=== PATIENT | male | born 1990 | race Hispanic/Latino ===

== ENCOUNTER 2022-02-17 18:27 | Emergency (ER) | payer SELFPAY ==
[2022-02-17 19:07] LABS: Urine Blood Negative (Negative); Urine Glucose Negative (Negative); Urine Protein 1+ (Negative); Urine Specific Gravity >=1.030 (1.005-1.030); Urine pH 5.5 (5.0-7.0)
[2022-02-17 19:16] LABS: Hematocrit 47.2 % (39.6-49.0); MCV 88.2 fL (80-100); RBC Red Blood Cell Count 5.35 M/uL (4.33-5.43)
[2022-02-17 19:17] LABS: Absolute Lymphocytes (CBC) 1.7 K/uL (0.7-4.9); Lymphocytes % 18.2 % (15.3-44.8); MPV 7.3 fL (7.6-11.3)
[2022-02-17 19:23] LABS: Protime INR 1.07
[2022-02-17 19:28] LABS: SARS-CoV-2 Antigen Rapid Res Negative (Negative)
[2022-02-17 19:49] LABS: ALT/SGPT 36 U/L (12-78); AST/SGOT 12 U/L (15-37); Albumin 4.3 g/dL (3.4-5.0); Alkaline Phosphatase 105 U/L (45-117); BUN Blood Urea Nitrogen 17 mg/dL (7-18); Barbiturates NEGATIVE (NEGATIVE); Benzodiazepines POSITIVE (NEGATIVE); Bicarbonate 30 mmol/L (21-32); Bilirubin Direct 0.2 mg/dL (0-0.2); Bilirubin Total 1.2 mg/dL (0.2-1.0); Cocaine POSITIVE (NEGATIVE); Glomerular Filtration Rate 90 ml/min (=/>90); Glucose Level 105 mg/dL (74-106); METHAMPHETAM POSITIVE (NEGATIVE); Methadone NEGATIVE (NEGATIVE); Opiates NEGATIVE (NEGATIVE); Phencyclidine NEGATIVE (NEGATIVE); Potassium 3.7 mmol/L (3.5-5.1); Protein, Total 8.2 g/dL (6.4-8.2); Sodium Level 139 mmol/L (136-145); THC Cannibis POSITIVE (NEGATIVE)
--- NOTE | 2022-02-17 20:29 | ER ---
Nurse's Notes [facility] Name: Arya Yang Age: 31 yrs Sex: Male : 1990 Arrival Date: 02/17/2022 Time: 18:28 Bed 16 Private MD: Diagnosis: Bipolar disorder, unspecified;Schizophrenia, unspecified;Cocaine abuse;Adverse effect of amphetamines;Abuse of other non-psychoactive substances;Adjustment disorder, unspecified-SUBSTANCE ABUSE ISSUES, HOMELESSNESS Presentation: 02/17 18:31 Chief complaint: EMS states: toned out to side of road in for AMS. Pt reporting SI ld1 ideation and hearing voices. Pt reports being homeless for one year. Coronavirus screen: At this time, the client does not indicate any symptoms associated with coronavirus-19. Ebola Screen: No symptoms or risks identified at this time. Initial Sepsis Screen: Does the patient meet any 2 criteria? No. Patient's initial sepsis screen is negative. Does the patient have a suspected source of infection? No. Patient's initial sepsis screen is negative. Risk Assessment: Do you want to hurt yourself or someone else? Patient reports desire/thoughts of hurting themselves or someone else. Provider notified. Onset of symptoms was February 17, 2022 at 18:33. 18:31 Method Of Arrival: EMS: [facility] ld1 18:31 Acuity: JAMES 2 ld1 Triage Assessment: 18:34 General: Appears in no apparent distress. comfortable, Behavior is calm, cooperative, ld1 appropriate for age. Pain: Denies pain. EENT: No signs and/or symptoms were reported regarding the EENT system. Neuro: Level of Consciousness is awake, alert, obeys commands, Oriented to person, place, time, situation. Cardiovascular: Capillary refill < 3 seconds Patient's skin is warm and dry. Rhythm is sinus tachycardia. Respiratory: Airway is patent Respiratory effort is even, unlabored. GI: Abdomen is flat, non-distended. : No signs and/or symptoms were reported regarding the genitourinary system. Derm: No deficits noted. No signs and/or symptoms reported regarding the dermatologic system. Musculoskeletal: No signs and/or symptoms reported regarding the musculoskeletal system. Historical: - Allergies: 18:34 No Known Allergies; ld1 - Home Meds: 18:34 None [Active]; ld1 - PMHx: 18:34 Bipolar disorder; Schizophrenia; Anxiety; ld1 - PSHx: 18:34 None; ld1 - Immunization history:: Adult Immunizations up to date, Client reports having NOT received the Covid vaccine. - Social history:: Smoking status: Patient reports the use of cigarette tobacco products, smokes one-half pack cigarettes per day, Patient uses street drugs, Methamphetamine (Meth) Patient/guardian denies using alcohol. Assessment: 20:48 Reassessment: Patient is alert, oriented x 3, equal unlabored respirations, skin ja4 warm/dry/pink. Patient denies pain at this time. Vital Signs: 18:31 BP 128 / 91; Pulse 101; Resp 20; Temp 98.1(TE); Pulse Ox 100% on R/A; Weight 65.77 kg; ld1 Height 5 ft. 9 in. (175.26 cm); Pain 0/10; 18:31 Body Mass Index 21.41 (65.77 kg, 175.26 cm) ld1 ED Course: 18:28 Patient arrived in ED. 18:30 Graec Newby, RN is Primary Nurse. ld1 18:31 Jose Barbour MD is Attending Physician. yuliana 18:33 Triage completed. ld1 18:34 Arm band placed on right wrist. ld1 18:53 SARS RAPID Sent. ld1 19:07 Inserted saline lock: 20 gauge in right antecubital area, using aseptic technique. Blood collected. 19:07 Acetaminophen Sent. zm 19:07 Basic Metabolic Panel Sent. zm 19:07 CBC with Diff Sent. zm 19:07 ETOH Level Sent. zm 19:07 Hepatic Function Sent. zm 19:07 PT-INR Sent. zm 19:07 Ptt, Activated Sent. zm 19:07 Salicylate Sent. zm 19:07 Urine Drug Screen Sent. zm 20:25 Carlos A Dobson MD is Referral Physician. yuliana 20:48 IV discontinued, intact, bleeding controlled, No redness/swelling at site. ja4 Administered Medications: No medications were administered Outcome: 20:28 Discharge ordered by . yuliana 20:49 Patient left the ED. ja4 Signatures: Jose Barbour MD MD cha Smirch, Shelby, RN RN Grace Newby RN RN ld1 Nataly Brewer Jeremy, RN RN ja4 Corrections: (The following items were deleted from the chart) 18:34 18:31 Pulse Ox 100% RA; 65.77 kg; Height 5 ft. 9 in.; BMI: 21.4; Pain 0/10; deandre1 deandre1
--- NOTE | 2022-02-17 20:29 | EDPHYS ---
Physician Documentation [facility] Name: Arya Yang Age: 31 yrs Sex: Male : 1990 Arrival Date: 02/17/2022 Time: 18:28 Bed 16 Private MD: ED Physician Jose Barbour HPI: 02/17 20:21 This 31 yrs old Male presents to ER via EMS with complaints of Suicidal yuliana Ideation. 20:21 The patient presents to the emergency department with anxiety, depression. Onset: The yuliana symptoms/episode began/occurred today. Past psychiatric history: Prior diagnosis: bipolar disorder, schizophrenia. Associated signs and symptoms: The patient has no apparent associated signs or symptoms. Severity of symptoms: At their worst the symptoms were mild in the emergency department the symptoms have improved markedly. The patient has experienced similar episodes in the past, several times. Historical: - Allergies: 18:34 No Known Allergies; ld1 - Home Meds: 18:34 None [Active]; ld1 - PMHx: 18:34 Bipolar disorder; Schizophrenia; Anxiety; ld1 - PSHx: 18:34 None; ld1 - Immunization history:: Adult Immunizations up to date, Client reports having NOT received the Covid vaccine. - Social history:: Smoking status: Patient reports the use of cigarette tobacco products, smokes one-half pack cigarettes per day, Patient uses street drugs, Methamphetamine (Meth) Patient/guardian denies using alcohol. ROS: 20:22 Constitutional: Negative for fever, chills, and weight loss, Eyes: Negative for injury, yuliana pain, redness, and discharge, ENT: Negative for injury, pain, and discharge, Neck: Negative for injury, pain, and swelling, Cardiovascular: Negative for chest pain, palpitations, and edema, Respiratory: Negative for shortness of breath, cough, wheezing, and pleuritic chest pain, Abdomen/GI: Negative for abdominal pain, nausea, vomiting, diarrhea, and constipation, Back: Negative for injury and pain, : Negative for injury, bleeding, discharge, and swelling, MS/Extremity: Negative for injury and deformity, Skin: Negative for injury, rash, and discoloration, Neuro: Negative for headache, weakness, numbness, tingling, and seizure, Allergy/Immunology: Negative for hives, rash, and allergies, Endocrine: Negative for neck swelling, polydipsia, polyuria, polyphagia, and marked weight changes, Hematologic/Lymphatic: Negative for swollen nodes, abnormal bleeding, and unusual bruising. 20:22 Psych: Positive for depression, DENIES SUICIDAL IDEATION, NOT HOMICIDAL , CAME IN BECAUSE HUNGRY. Exam: 20:22 Constitutional: This is a well developed, well nourished patient who is awake, alert, yuliana and in no acute distress. Head/Face: Normocephalic, atraumatic. Eyes: Pupils equal round and reactive to light, extra-ocular motions intact. Lids and lashes normal. Conjunctiva and sclera are non-icteric and not injected. Cornea within normal limits. Periorbital areas with no swelling, redness, or edema. ENT: Nares patent. No nasal discharge, no septal abnormalities noted. Tympanic membranes are normal and external auditory canals are clear. Oropharynx with no redness, swelling, or masses, exudates, or evidence of obstruction, uvula midline. Mucous membranes moist. Neck: Trachea midline, no thyromegaly or masses palpated, and no cervical lymphadenopathy. Supple, full range of motion without nuchal rigidity, or vertebral point tenderness. No Meningismus. Chest/axilla: Normal chest wall appearance and motion. Nontender with no deformity. No lesions are appreciated. Cardiovascular: Regular rate and rhythm with a normal S1 and S2. No gallops, murmurs, or rubs. Normal PMI, no JVD. No pulse deficits. Respiratory: Lungs have equal breath sounds bilaterally, clear to auscultation and percussion. No rales, rhonchi or wheezes noted. No increased work of breathing, no retractions or nasal flaring. Abdomen/GI: Soft, non-tender, with normal bowel sounds. No distension or tympany. No guarding or rebound. No evidence of tenderness throughout. Back: No spinal tenderness. No costovertebral tenderness. Full range of motion. Skin: Warm, dry with normal turgor. Normal color with no rashes, no lesions, and no evidence of cellulitis. MS/ Extremity: Pulses equal, no cyanosis. Neurovascular intact. Full, normal range of motion. Neuro: Awake and alert, GCS 15, oriented to person, place, time, and situation. Cranial nerves II-XII grossly intact. Motor strength 5/5 in all extremities. Sensory grossly intact. Cerebellar exam normal. Normal gait. Psych: Awake, alert, with orientation to person, place and time. Behavior, mood, and affect are within normal limits. 20:22 ECG was reviewed by the Attending Physician. Vital Signs: 18:31 BP 128 / 91; Pulse 101; Resp 20; Temp 98.1(TE); Pulse Ox 100% on R/A; Weight 65.77 kg; ld1 Height 5 ft. 9 in. (175.26 cm); Pain 0/10; 18:31 Body Mass Index 21.41 (65.77 kg, 175.26 cm) ld1 MDM: 18:31 Patient medically screened. yuliana 20:24 Differential diagnosis: acute psychotic break, depression, psychosis secondary to yuliana non-compliance. Data reviewed: vital signs, nurses notes, lab test result(s), EKG. Data interpreted: secured entrance monitor: rate is 101 beats/min, rhythm is regular, Pulse oximetry: on room air is 100 %. Test interpretation: by ED physician or midlevel provider: ECG. Counseling: I had a detailed discussion with the patient and/or guardian regarding: the historical points, exam findings, and any diagnostic results supporting the discharge/admit diagnosis, lab results, the need for outpatient follow up, for definitive care, a family practitioner, a psychiatrist. 02/17 18:32 Order name: Acetaminophen; Complete Time: 20:24 [facility] 02/17 18:32 Order name: Basic Metabolic Panel; Complete Time: 20:24 yuliana 02/17 18:32 Order name: CBC with Diff; Complete Time: 20:24 02/17 18:32 Order name: ETOH Level; Complete Time: 20:24 yuliana 02/17 18:32 Order name: Hepatic Function; Complete Time: 20:24 02/17 18:32 Order name: PT-INR; Complete Time: 20:24 yuliana 02/17 18:32 Order name: Ptt, Activated; Complete Time: 20:24 02/17 18:32 Order name: Salicylate; Complete Time: 20:24 yuliana 02/17 18:32 Order name: Urine Drug Screen; Complete Time: 20:24 yuliana 02/17 18:32 Order name: EKG; Complete Time: 18:33 02/17 18:32 Order name: EKG - Nurse/Tech; Complete Time: 18:53 02/17 18:32 Order name: SARS RAPID; Complete Time: 20:24 [facility] 02/17 19:08 Order name: Urine Dipstick-Ancillary; Complete Time: 20:24 [facility] 02/17 18:32 Order name: IV Saline Lock; Complete Time: 19:07 [facility] 02/17 18:32 Order name: Labs collected and sent; Complete Time: 19:07 [facility] 02/17 18:32 Order name: Suicide Precautions; Complete Time: 18:53 [facility] 02/17 18:32 Order name: Suicide Screening ([place]) [facility] 02/17 18:32 Order name: Urine Dipstick-Ancillary (obtain specimen); Complete Time: 19:08 [facility] EC: Rate is 81 beats/min. Rhythm is regular. QRS [place] is Normal. [place] interval is normal. QRS yuliana interval is normal. QT interval is normal. No Q waves. T waves are Normal. No ST changes noted. Clinical impression: Normal ECG and No evidence of ischemia. Interpreted by me. Reviewed by me. Administered Medications: No medications were administered Disposition Summary: 02/17/22 20:28 Discharge Ordered Location: Home yuliana Problem: new yuliana Symptoms: have improved yuliana Condition: Stable yuliana Diagnosis - Bipolar disorder, unspecified yuliana - Schizophrenia, unspecified yuliana - Cocaine abuse yuliana - Adverse effect of amphetamines yuliana - Abuse of other non-psychoactive substances yuliana - Adjustment disorder, unspecified - SUBSTANCE ABUSE ISSUES, HOMELESSNESS yuliana Followup: yuliana - With: Private Physician - When: 2 - 3 days - Reason: Recheck today's complaints, Continuance of care, Re-evaluation by your physician Followup: yuliana - With: Carlos A Dobson MD - When: 2 - 3 days - Reason: Recheck today's complaints, Re-evaluation by your physician Discharge Instructions: - Discharge Summary Sheet yuliana - Adjustment Disorder, Adult yuliana - Finding Treatment for Addiction yuliana - Substance Use Disorder yuliana - Schizophrenia yuliana - Supporting Someone With an Addiction yuliana - Supporting Someone With Bipolar Disorder yuliana - Managing Schizophrenia yuliana - Supporting Someone With Substance Use Disorder yuliana Forms: - Medication Reconciliation Form yuliana - Thank You Letter yuliana - Antibiotic Education yuliana - Prescription Opioid Use yuliana Signatures: Dispatcher [employer] Jose Núñez MD MD cha Dibbern, Lauren RN RN ld1
[2022-02-17 21:49] VITALS: BP 128/91; TEMP 98.1; O2SAT 100
--- NOTE | 2022-02-21 08:17 | EKG ---
Test Date: 2022-02-17 Test Time: 18:54:11 Transfusion Nurse: ALYSIA MEASUREMENT RESULTS: Intervals: Rate: 81 MD: 154 QRSD: 94 QT: 358 QTc: 415 [place]: P: 64 MD: 154 QRS: 86 T: 27 INTERPRETIVE STATEMENTS: Normal sinus rhythm Normal ECG Compared to ECG 08/19/2013 13:50:09 Sinus bradycardia no longer present Sinus arrhythmia no longer present Electronically Signed On 02-21-22 08:07:23 CDT by Philip Santillan
== END 2022-02-17 20:49 | disposition home or self-care (01) ==
LOC: ER 18:27
DX: F14.10 Cocaine abuse, uncomplicated (principal); F55.8 Abuse of other non-psychoactive substances; T43.625A Adverse effect of amphetamines, initial encounter; Z59.00 Homelessness unspecified; F20.9 Schizophrenia, unspecified; F31.9 Bipolar disorder, unspecified; F17.210 Nicotine dependence, cigarettes, uncomplicated; Z20.822 Contact with and (suspected) exposure to COVID-19
CPT/HCPCS: 36415; 80048; 80076; 80307; 80320; 80329; 81003; 85025; 85610; 85730; 87811; 93005; 99284

== ENCOUNTER 2022-02-18 08:39 | Emergency (ER) | payer SELFPAY ==
--- OUTSIDE RECORDS SUMMARY | 2022-02-18 08:42 | XMS REPORT | Continuity of Care Document ---
:1990 Author Organization [facility] t Address [address] [place] [address] Care Team Providers Name Role Phone PCP, PATIENT DOES NOT HAVE A Primary Care Physician Unavaila CATHY Alan Attending Clinician Unavailable aCthy Delvalle MD Attending Clinician VAUGHN SMITH Attending Clinician Unavailable Vaughn White Attending Clinician SUNNI SOTO Attending Clinician Unavailable Sunni Soto DO Attending Clinician Doctor Unassigned, [place] Attending Clinician Unavailable Stephen Baptiste MD Attending Clinician GAVIN LOWERY Attending Clinician Unavailable Gavin Lowery MD Attending Clinician Payers Payer Name Policy Type Policy Number Effective Date Expiration Date S ource Problems Condition Condition Condition Status Onset Resolution Last Treating Co mments Source Name Details Category Date Date Treatment Clinician Date No known No known Disease Unive rs active active ity of problems problems [facility] Allergies, Adverse Reactions, Alerts Allergy Allergy Status Severity Reaction(s) Onset Inactive Treating Comm ents Source Name Type Date Date Clinician No Known DA Active U 2020-07 [facility] Drug 07-11 Allergie 00:00: s 00 NO KNOWN Drug Active Univers ALLERGIE Class [facility] [place] [facility] Social History Social Habit Start Date Stop Date Quantity Comments Source Exposure to Not sure [facility] SARS-CoV-2 (event) Medica l Branch Sex Assigned At [birth year] [facility] 00:00:00 00:00:00 [facility] Smoking Status Start Date Stop Date Source Unknown if ever smoked [facility] Medications Ordered Filled Start Stop Current Ordering Indication Dosage Frequency Signature Comments Components Source Medication Medication Date Date Medication? Clinician (SIG) Name Name NaCl 0.9% 2021- No 1000mL at 999 Uni vers (NS) bolus 4-10 04-10 mL/hr, ity of infusion 13:45: 14:12 1,000 mL, Marquez as 1,000 mL 00 :00 IV Medical Infusion, Branch ONCE, 1 dose, On 10/10/21 at 0845, ANÍBAL NaCl 0.9% 2021- No 1000mL at 999 Uni vers (NS) bolus 4-10 04-10 mL/hr, ity of infusion 12:30: 14:09 1,000 mL, Marquez as 1,000 mL 00 :00 IV Medical Infusion, Branch ONCE, 1 dose, On 10/10/21 at 0730, ANÍBAL hydrOXYzine 2021- No 50mg 50 mg, Uni vers (ATARAX) 08 04-08 Oral, ity of tablet 50 02:37: 02:39 ONCE, [place] :[place] dose, On Medical Jonelle 10/07/21 Branch at 2145, ANÍBAL No known 2020-07 No Univers medications 2-14 ity of 12:14: [address] No known 2020-07 No Univers medications 2-14 ity of 12:14: [address] No known 2020-07 No Univers medications 2-14 ity of 12:14: [address] sulfacetami 2020-07- No [id number] 1[drp] Place 1 Univers de 10 % 2-06-23 Drop in ity of ophthalmic 00:00: 05:59 both eyes [place] drops 00 :00 4 (four) Medical times Branch daily for 7 days. No known 2020-07 No Univers medications 0-29 ity of 06:19: [address] No known 2020-07 No Univers medications 0-29 ity of 06:19: [place] [address] Medical Branch No known 2020-07 No Univers medications 0-29 ity of 06:19: [place] [address] Medical Branch No known 2020-07 No Univers medications 0-29 ity of 06:19: [place] [address] Medical Branch Vital Signs Vital Name Observation Time Observation Value Comments Source Systolic blood 2021-10-10 14:00:00 100 mm[Hg] Univer sity of pressure [facility] Diastolic blood 2021-10-10 14:00:00 69 mm[Hg] Unive rsity of pressure [facility] Heart rate 2021-10-10 14:00:00 87 /min [facility] [place] [facility] Respiratory rate 2021-10-10 14:00:00 18 /min Univ [facility] [place] [facility] Oxygen saturation in 2021-10-10 14:00:00 98 /min University of Arterial blood by [place] [employer] [facility] Pulse oximetry Branch Body temperature 2021-10-10 11:20:00 37.11 Aylin [facility] [place] [facility] Body weight 2021-10-10 11:20:00 61.236 kg [facility] [place] [facility] BMI 2021-10-10 11:20:00 20.53 kg/m2 [facility] [place] [facility] Systolic blood 2021-10-08 02:01:00 158 mm[Hg] Univer sity of pressure [place] [facility] Diastolic blood 2021-10-08 02:01:00 92 mm[Hg] Unive rsity of pressure [place] [facility] Heart rate 2021-10-08 02:01:00 127 /min [facility] [place] [facility] Body temperature 2021-10-08 02:01:00 35.83 Aylin [facility] [place] [facility] Respiratory rate 2021-10-08 02:01:00 16 /min [facility] [place] [facility] Body height 2021-10-08 02:01:00 170.2 cm [facility] [place] [facility] Body weight 2021-10-08 02:01:00 61.236 kg [facility] [place] [facility] BMI 2021-10-08 02:01:00 21.14 kg/m2 [facility] [place] [facility] Oxygen saturation in 2021-10-08 02:01:00 99 /min University of Arterial blood by [facility] Pulse oximetry Branch Systolic blood 2021-06-15 18:06:00 123 mm[Hg] Univer sity of pressure [place] [facility] Diastolic blood 2021-06-15 18:06:00 82 mm[Hg] Unive rsity of pressure [place] [facility] Heart rate 2021-06-15 18:06:00 108 /min [facility] [place] [facility] Body temperature 2021-06-15 18:06:00 37.06 Aylin [facility] [place] [facility] Respiratory rate 2021-06-15 18:06:00 22 /min [facility] [place] [facility] Body weight 2021-06-15 18:06:00 61.236 kg [facility] [place] [facility] BMI 2021-06-15 18:06:00 20.53 kg/m2 [facility] [place] [facility] Oxygen saturation in 2021-06-15 18:06:00 100 /min University of Arterial blood by [facility] Pulse oximetry Branch Systolic blood 2021-04-30 11:18:00 131 mm[Hg] Univer sity of pressure [place] [facility] Diastolic blood 2021-04-30 11:18:00 90 mm[Hg] Unive rsity of pressure [place] [facility] Heart rate 2021-04-30 11:18:00 112 /min [facility] [place] [facility] Body temperature 2021-04-30 11:18:00 37.11 Aylin [facility] [place] [facility] Respiratory rate 2021-04-30 11:18:00 18 /min Univ [facility] [place] [facility] [place] Body height 2021-04-30 11:18:00 172.7 cm [facility] [place] [facility] Body weight 2021-04-30 11:18:00 61.236 kg [facility] [place] [facility] BMI 2021-04-30 11:18:00 20.53 kg/m2 [facility] [place] [facility] Oxygen saturation in 2021-04-30 11:18:00 99 /min University of Arterial blood by [facility] Pulse oximetry Branch Procedures Procedure Date / Time Performing Clinician Source Performed URINALYSIS 2021-10-10 11:39:00 Cathy Delvalle [facility] CREATINE KINASE 2021-10-10 11:38:00 Cathy Delvalle [facility] MAGNESIUM 2021-10-10 11:38:00 Cathy Delvalle o [facility] COMP. METABOLIC PANEL 2021-10-10 11:38:00 Cathy Delvalle [facility] sity [facility] ([id number]) Medical Branch ETHANOL 2021-10-10 11:38:00 Cathy Delvalle [place] o [facility] CBC WITH DIFF 2021-10-10 11:38:00 Cathy Delvalle [facility] URINE DRUG (IMMUNOASSAY) 2021-10-10 11:38:00 [facility]athy [facility]val[facility] SCREEN W/O REFLEX CONSENT/REFUSAL FOR 2021-06-15 17:48:32 Doctor Unassigned, [place] [facility] [place] [facility] Name [facility] NON [facility] 2021-05-17 06:01:00 Doctor Unassigned, No [facility] [place] DOC[facility] Name [facility] 2021-05-11 06:01:00 Doctor Unassigned, No [facility] [place] DOC[facility] Name [facility] NOTICE OF PRIVACY 2021-04-30 11:12:53 Doctor Unassigned, No [facility] [place] PRACTICES Name [facility] Encounters Start End Encounter Admission Attending Care Care Encounter Source Date/Time Date/Time Type Type Clinicians Facility Department ID 2021-05-11 Inpatient [facility] [id number] [facility] 19:06:00 98 2021-10-10 2021-10-10 Emergency X [facility] ERT [id number] Univers 06:17:00 09:49:00 CATHY ybarra [facility] 2021-10-10 2021-10-10 Emergency [facility] [id number] Univers 06:17:00 09:49:00 Cathy BONILLA [id number] i ty [facility] 4.2.7.2.686 [facility] [id number] [facility] 084 Branch 2021-10-07 2021-10-07 Emergency X SARAH [facility] ERT [id number] Univers 21:07:00 22:58:00 VAUGHN ybarra [facility] 2021-10-07 2021-10-07 Emergency Sarah [facility] [id number] Univers 21:07:00 22:58:00 Vaughn BONILLA [id number] ity of [place] 4.2.7.2.686 [facility] [id number] [place] [address] Branch 2021-06-15 2021-06-15 Emergency X [facility] ERT [id number] Univers 12:07:00 12:24:00 SUNNI ity of [facility] 2021-06-15 2021-06-15 Emergency [facility] [id number] Univers 12:07:00 12:24:00 Sunni BONILLA [id number] ity of [place] 4.2.7.2.686 [facility] [id number] [address] 2021-06-15 2021-06-15 Orders Doctor JUSTUS [id number] Univers 00:00:00 00:00:00 Only Unassigned, RICARDO [id number] ity of [place] [facility] 4.2.7.2.686 Marquez as [id number] [place] [address] Branch 2021-05-17 2021-05-17 [facility] [id number] Univers 08:34:00 23:59:00 Encounter Stephen ROSAS'S [id number] ity of MEDICAL 4.2.7.2.686 [facility] [place] [id number] [place] [address] Branch 2021-05-17 2021-05-17 Orders Doctor JEROME [id number] Univers 00:00:00 00:00:00 Only Unassigned, RICARDO 350.1.13.10 ity of [place] [facility] 4.2.7.2.686 Marquez as [id number] [facility] 009 Branch 2021-05-11 2021-05-11 [facility] [id number] Univers 14:09:00 23:59:00 Encounter Stephen ROSAS'S [id number] ity of MEDICAL 4.2.7.2.686 [facility] [place] [id number] [place] [address] Branch 2021-05-11 2021-05-11 Orders Doctor JUSTUS [id number] Univers 00:00:00 00:00:00 Only Unassigned, RICARDO 350.1.13.10 ity of [place] [facility] 4.2.7.2.686 [facility] [id number] [facility] 009 Branch 2021-04-30 2021-04-30 Emergency X [facility] ERT [id number] Univers 06:21:00 06:49:00 WAKILI ity of [facility] 2021-04-30 2021-04-30 Emergency [facility] [id number] Univers 06:21:00 06:49:00 Gavin Gomez BONILLA 350.1.13.10 ity of [place] 4.2.7.2.686 [facility] [id number] [facility] 084 Cylinder Results Test Description Test Time Test Comments Results Result Comments Source ETHANOL 2021-10-10 12:33:25 Test Item Value Reference Range Interpretation Comme nts ALCOHOL (test code = 0762365110) <10 mg/dL RHODA (test code = RHODA) <10 [id number] Toxic>100 Depression of SECTION HAND>400 [facility] ([id number])2021-10-10 12:01:17 Test Item Value Reference Range Interpretation Comments NA (test code = 140 mmol/L 135-145 5486632679) K (test code = 4.7 mmol/L 3.5-5.0 5656398125) CL (test code = 101 mmol/L 98-108 6551315744) CO2 TOTAL (test code = 29 mmol/L 23-31 0584474692) AGAP (test code = 2-16 8580048615) BUN (test code = 24 mg/dL 7-23 H 2225762736) GLUCOSE (test code = 89 mg/dL 70-110 6686020031) CREATININE (test code = 0.91 mg/dL 0.60-1.25 4596633428) TOTAL BILI (test code = 1.1 mg/dL 0.1-1.8 8792690207) CALCIUM (test code = 9.6 mg/dL 8.6-10.6 6445451152) T PROTEIN (test code = 7.4 g/dL 6.3-8.2 7986784248) ALBUMIN (test code = 4.6 g/dL 3.5-5.0 4611729903) ALK PHOS (test code = 91 U/L 34-122 7951097412) ALTv (test code = 26 U/L 5-50 1742-6) AST(SGOT) (test code = 33 U/L 13-40 0599827736) eGFR (test code = mL/min/1.73m2 3054675329) RHODA (test code = RHODA) Association of Glomerular Filtration Rate (GFR) and Staging of Kidney Disease* + --+ --+ ------+| GFR (mL/min/1.73 m2) ?| With Kidney Damage ?| ?Without Kidney Damage+ --------+ --------+ +| ?>90 ?| ?Stage one ?| ? Normal ?+ ---+ ---+ -------+| ?60-89 ?| ?Stage two ?| ? Decreased GFR ? + --+ --+ ------+| ?30-59 ?| ?Stage three ?| ? Stage three ? + --+ --+ ------+| ?15-29 ?| ?Stage four ? | ? Stage four ?+ ---+ ---+ -------+| ?<15 (or dialysis) ? ?| ?Stage five ? | ? Stage five ?+ ---+ ---+ -------+ *Each stage assumes the associated GFR level has been in effect for at least three months. ?Stages 1 to 5, with or without kidney disease, indicate chronic kidney disease. Notes: Determination of stages one and two (with eGFR >59mL/min/1.73 m2) requires estimation of kidney damage for at least three months as defined by structural or functional abnormalities of the kidney, manifested by either:Pathological abnormalities or Markers of kidney damage (including abnormalities in the composition of the blood or urine or abnormalities in imaging tests). Lab Interpretation Abnormal (test code = 63143-9) [facility] 12:01:17 Test Item Value Reference Range Interpretation Comments MAGNESIUM (test code = 4980501441) 2.4 mg/dL 1.7-2.4 Lab Interpretation (test code = Normal 10493-6) [facility] [id number] 12:01:17 Test Item Value Reference Range Interpretation Comments CK (test code = 8744166089) 478 U/L 33-194 H Lab Interpretation (test code = Abnormal 06014-5) [facility] [id number] 11:51:00 Test Item Value Reference Range Interpretation Comments WBC (test code = See_Comment H [Automated 6690-2) message] The system which generated this result transmit ysabel reference range : 4.20 - 10.70 10*3/?L. The reference range was not used to interpret this result as normal/abnormal . RBC (test code = See_Comment [Automated 789-8) message] The system which generated this result transmit ysabel reference range : 4.26 - 5.52 10*6/?L. The reference range was not used to interpret this result as normal/abnormal . HGB (test code = 13.1 g/dL 12.2-16.4 718-7) HCT (test code = 37.9 % 38.4-49.3 L 4544-3) MCV (test code = 88.6 fL 81.7-95.6 787-2) MCH (test code = 30.6 pg 26.1-32.7 785-6) MCHC (test code = 34.6 g/dL 31.2-35.0 786-4) RDW-SD (test code = 42.1 fL 38.5-51.6 60095-6) RDW-CV (test code = 13.0 % 12.1-15.4 788-0) PLT (test code = See_Comment H [Automated 777-3) message] The system which generated this result transmit ysabel reference range : 150 - 328 10*3/ ?L. The reference range was not u sed to interpret th is result as normal/abnormal . MPV (test code = 8.9 fL 9.8-13.0 L 61119-8) NRBC/100 WBC (test See_Comment [Automat ed code = 7372263260) message] The system which generated this result transmit ysabel reference range : 0.0 - 10.0 /100 WBCs. The reference range was not used to interpret this result as normal/abnormal . NRBC x10^3 (test code <0.01 See_Comment [Auto mated = 9874737411) message] The system which generated this result transmit ysabel reference range : 10*3/?L. The reference range was not used to interpret this result as normal/abnormal . GRAN MAT (NEUT) % 82.0 % (test code = 770-8) IMM GRAN % (test code 0.50 % = 9290679682) LYMPH % (test code = 10.7 % 736-9) MONO % (test code = 5.8 % 5905-5) EOS % (test code = 0.4 % 713-8) BASO % (test code = 0.6 % 706-2) GRAN MAT x10^3(ANC) 13.94 10*3/uL 1.99-6.95 H (test code = 4308912688) IMM GRAN x10^3 (test 0.08 10*3/uL 0.00-0.06 H code = 2076172719) LYMPH x10^3 (test code 1.82 10*3/uL 1.09-3.23 = 731-0) MONO x10^3 (test code 0.99 10*3/uL 0.36-1.02 = 742-7) EOS x10^3 (test code = 0.06 10*3/uL 0.06-0.53 711-2) BASO x10^3 (test code 0.10 10*3/uL 0.01-0.09 H = 704-7) Lab Interpretation Abnormal (test code = 63831-2) [facility]
[2022-02-18 09:31] LABS: Urine Blood Negative (Negative); Urine Glucose Negative (Negative); Urine Protein 1+ (Negative); Urine Specific Gravity >=1.030 (1.005-1.030); Urine pH 5.5 (5.0-7.0)
[2022-02-18 09:56] LABS: Absolute Lymphocytes (CBC) 1.7 K/uL (0.7-4.9); Hematocrit 45.3 % (39.6-49.0); Lymphocytes % 17.4 % (15.3-44.8); MPV 7.5 fL (7.6-11.3); RBC Red Blood Cell Count 5.15 M/uL (4.33-5.43)
[2022-02-18 09:58] LABS: Barbiturates NEGATIVE (NEGATIVE); Benzodiazepines POSITIVE (NEGATIVE); Cocaine NEGATIVE (NEGATIVE); METHAMPHETAM POSITIVE (NEGATIVE); Methadone NEGATIVE (NEGATIVE); Opiates NEGATIVE (NEGATIVE); Phencyclidine NEGATIVE (NEGATIVE); THC Cannibis POSITIVE (NEGATIVE)
[2022-02-18] MEDS ORDERED: NA CHLORIDE 0.9% 1,000 ML ONE (10:05)
[2022-02-18 10:11] LABS: Albumin 3.7 g/dL (3.4-5.0); Bilirubin Total 0.7 mg/dL (0.2-1.0); Potassium 3.6 mmol/L (3.5-5.1); Protein, Total 7.2 g/dL (6.4-8.2)
--- NOTE | 2022-02-18 10:27 | ER ---
Nurse's Notes [facility] Name: Arya Yang Age: 31 yrs Sex: Male : 1990 Arrival Date: 02/18/2022 Time: 08:39 Bed 17 Private MD: Diagnosis: Suicidal ideations Presentation: 02/18 08:46 Chief complaint: Patient states: she hears evil voices that tell him "evil things", and ap3 patient states "i just want to already". "If i had a gun, it would make it so much easier to do this". "I dont' have anybody on my side, i'm ready to go" Patient states that because of these evil voices, he has no where to go, he's homeless and no longer has access to his children. Coronavirus screen: At this time, the client does not indicate any symptoms associated with coronavirus-19. Ebola Screen: No symptoms or risks identified at this time. Initial Sepsis Screen: Does the patient meet any 2 criteria? No. Patient's initial sepsis screen is negative. Does the patient have a suspected source of infection? No. Patient's initial sepsis screen is negative. Risk Assessment: Do you want to hurt yourself or someone else? Patient reports desire/thoughts of hurting themselves or someone else. Provider notified. Onset of symptoms is unknown. 08:46 Method Of Arrival: Ambulatory ap3 08:46 Acuity: JAMES 2 ap3 Triage Assessment: 08:50 General: Appears distressed, Behavior is anxious. Pain: Denies pain. Neuro: Level of ap3 Consciousness is awake, alert, Oriented to person, place, time, situation. Cardiovascular: Patient's skin is warm and dry. Respiratory: Airway is patent Respiratory effort is even, unlabored. Historical: - Allergies: 08:49 No Known Allergies; ap3 - PMHx: 08:49 Anxiety; Bipolar disorder; Schizophrenia; ap3 - Immunization history:: Client reports having NOT received the Covid vaccine. - Social history:: Smoking status: Patient reports the use of cigarette tobacco products, Patient/guardian denies using alcohol, street drugs. Screenin:52 Nutritional screening: No deficits noted. Tuberculosis screening: No symptoms or risk ap3 factors identified. 09:59 Abuse screen: Denies threats or abuse. Denies injuries from another. Fall Risk No fall mb8 in past 12 months (0 pts). Secondary diagnosis (15 points) No IV (0 pts). Ambulatory Aid- None/Bed Rest/Nurse Assist (0 pts). Gait- Normal/Bed Rest/Wheelchair (0 pts) Mental Status- Oriented to own ability (0 pts). Total Love Fall Scale indicates No Risk (0-24 pts). Assessment: 09:00 Pain: Denies pain. mb8 10:00 Reassessment: No changes from previously documented assessment. Patient and/or family mb8 updated on plan of care and expected duration. Pain level reassessed. Patient is alert, oriented x 3, equal unlabored respirations, skin warm/dry/pink. 11:07 Reassessment: Patient and/or family updated on plan of care and expected duration. Pain mb8 level reassessed. Patient is alert, oriented x 3, equal unlabored respirations, skin warm/dry/pink. 12:00 Reassessment: No changes from previously documented assessment. Patient and/or family mb8 updated on plan of care and expected duration. Pain level reassessed. Patient is alert, oriented x 3, equal unlabored respirations, skin warm/dry/pink. Patient denies pain at this time. 12:54 Reassessment: No changes from previously documented assessment. Patient and/or family mb8 updated on plan of care and expected duration. Pain level reassessed. Patient is alert, oriented x 3, equal unlabored respirations, skin warm/dry/pink. 13:49 Reassessment: Patient and/or family updated on plan of care and expected duration. Pain mb8 level reassessed. Patient is alert, oriented x 3, equal unlabored respirations, skin warm/dry/pink. Patient denies pain at this time. 15:01 Reassessment: Patient and/or family updated on plan of care and expected duration. Pain mb8 level reassessed. 15:36 General: Behavior is agitated, fussy, restless. mb8 16:00 Reassessment: Patient and/or family updated on plan of care and expected duration. Pain mb8 level reassessed. Patient is alert, oriented x 3, equal unlabored respirations, skin warm/dry/pink. Patient denies pain at this time. Patient states feeling better. General: Behavior is cooperative, anxious. 17:00 Reassessment: Patient and/or family updated on plan of care and expected duration. Pain mb8 level reassessed. Patient sleeping at this time.. 17:55 Reassessment: Patient and/or family updated on plan of care and expected duration. Pain mb8 level reassessed. 19:00 Reassessment: No changes from previously documented assessment. Patient and/or family ll3 updated on plan of care and expected duration. Pain level reassessed. Patient is alert, oriented x 3, equal unlabored respirations, skin warm/dry/pink. 23:00 Reassessment: No changes from previously documented assessment. Patient and/or family ll3 updated on plan of care and expected duration. Pain level reassessed. Patient is alert, oriented x 3, equal unlabored respirations, skin warm/dry/pink. 02/19 03:00 Reassessment: No changes from previously documented assessment. Patient and/or family ll3 updated on plan of care and expected duration. Pain level reassessed. Patient is alert, oriented x 3, equal unlabored respirations, skin warm/dry/pink. 06:35 Reassessment: No changes from previously documented assessment. Patient and/or family ll3 updated on plan of care and expected duration. Pain level reassessed. Patient is alert, oriented x 3, equal unlabored respirations, skin warm/dry/pink. 07:25 Reassessment: Patient and/or family updated on plan of care and expected duration. Pain jd3 level reassessed. Patient is alert, oriented x 3, equal unlabored respirations, skin warm/dry/pink. resting in bed with eyes closed. sitter at bedside. General: Appears in no apparent distress. comfortable, Behavior is calm, cooperative, appropriate for age. Pain: Denies pain. Neuro: [place]barra Agitation-Sedation Scale (RASS): 0 - Alert and Calm Level of Consciousness is awake, alert, obeys commands, Oriented to person, place, time, situation. 08:00 Reassessment: Patient appears in no apparent distress at this time. Patient and/or jd3 family updated on plan of care and expected duration. Pain level reassessed. Patient is alert, oriented x 3, equal unlabored respirations, skin warm/dry/pink. pt resting in bed, sitter at beside. 09:00 Reassessment: Patient appears in no apparent distress at this time. No changes from jd3 previously documented assessment. Patient and/or family updated on plan of care and expected duration. Pain level reassessed. Patient is alert, oriented x 3, equal unlabored respirations, skin warm/dry/pink. 10:00 Reassessment: Patient appears in no apparent distress at this time. No changes from jd3 previously documented assessment. Patient and/or family updated on plan of care and expected duration. Pain level reassessed. Patient is alert, oriented x 3, equal unlabored respirations, skin warm/dry/pink. 10:30 Reassessment: Patient and/or family updated on plan of care and expected duration. Pain jd3 level reassessed. Patient is alert, oriented x 3, equal unlabored respirations, skin warm/dry/pink. spoke with pt family member (mom) at [phone] at the pt's request to update her on plan of care. family requesting to speak with pt. pt speaking with family at this time on the phone. pt stating "I am homeless. I had to lie to these people here at the hospital saying I wanted to shoot myself just to get a place to sleep and something to eat." provider notified. no new orders at this time. 11:30 Reassessment: Patient appears in no apparent distress at this time. Patient and/or jd3 family updated on plan of care and expected duration. Pain level reassessed. Patient is alert, oriented x 3, equal unlabored respirations, skin warm/dry/pink. family at bedside talking with pt. family then out to nursing station discussing plan of care with nursing staff. pt's mother reported that even with him lying about being suicidal that the pt is still hearing voices and does not feel comfortable with the pt coming home today and agrees with the plan for transfer. pt's mother asking to receive a call when the pt is dispo'd. 12:30 Reassessment: Patient appears in no apparent distress at this time. Patient and/or jd3 family updated on plan of care and expected duration. Pain level reassessed. Patient is alert, oriented x 3, equal unlabored respirations, skin warm/dry/pink. resting in bed watching TV. 13:00 Reassessment: Patient appears in no apparent distress at this time. Patient and/or jd3 family updated on plan of care and expected duration. Pain level reassessed. Patient is alert, oriented x 3, equal unlabored respirations, skin warm/dry/pink. pt sitting up and eating lunch. 14:00 Reassessment: Patient appears in no apparent distress at this time. Patient and/or jd3 family updated on plan of care and expected duration. Pain level reassessed. Patient is alert, oriented x 3, equal unlabored respirations, skin warm/dry/pink. resting in bed watching TV. 15:00 Reassessment: Patient appears in no apparent distress at this time. Patient and/or jd3 family updated on plan of care and expected duration. Pain level reassessed. Patient is alert, oriented x 3, equal unlabored respirations, skin warm/dry/pink. resting in bed with eyes closed. even and unlabored respirations. sitter at bedside. 16:00 Reassessment: Patient appears in no apparent distress at this time. No changes from jd3 previously documented assessment. Patient and/or family updated on plan of care and expected duration. Pain level reassessed. Patient is alert, oriented x 3, equal unlabored respirations, skin warm/dry/pink. 17:00 Reassessment: Patient appears in no apparent distress at this time. No changes from jd3 previously documented assessment. Patient and/or family updated on plan of care and expected duration. Pain level reassessed. Patient is alert, oriented x 3, equal unlabored respirations, skin warm/dry/pink. 18:00 Reassessment: Patient appears in no apparent distress at this time. Patient and/or jd3 family updated on plan of care and expected duration. Pain level reassessed. Patient is alert, oriented x 3, equal unlabored respirations, skin warm/dry/pink. resting in bed watching TV. 18:15 Reassessment: pt pacing room asking for "the same medication they gave me yesterday jd3 that also helped me sleep." provider notified of pt pacing room and request. see AUG. 02/20 07:00 Reassessment: Pt laying in bed with eyes closed, respirations even and unlabored, no jl7 signs of distress noted at this time. Awaiting breakfast tray. 07:15 Reassessment: pt reported during mental health re-evaluation that he had only said that jd3 he wanted to hurt himself to get a place to sleep and food due to being homeless. 08:55 Reassessment: Patient appears in no apparent distress at this time. Patient and/or jl7 family updated on plan of care and expected duration. Pain level reassessed. Patient is alert, oriented x 3, equal unlabored respirations, skin warm/dry/pink. Breakfast tray delivered. Pt denies SI, denies HI. Sitter remains at bedside. Patient denies pain at this time. 09:00 Reassessment: Pt states "I just needed a place to stay. I don't want to hurt myself or jl7 anyone else.". 11:00 Reassessment: Patient appears in no apparent distress at this time. No changes from jl7 previously documented assessment. Patient denies pain at this time. 12:00 Reassessment: Pt requesting to be discharged, pt's mom on her way to get him. STEPHEN jl7 notified. 12:33 Reassessment: Pt awaiting mom's arrival for transportation. jl7 Psych: 02/18 08:50 [place] Suicide Severity Screening: In the past month, have you wished you were ap3 or wished you could go to sleep and not wake up? Patient responds "yes." "In the past month, have you actually had any thoughts of killing yourself?" Patient responds "yes." "In your lifetime, have you ever done anything, started to do anything, or prepared to do anything to end your life?" Patient responds "yes." Patient reports suicidal intent within 3 past months. patient states he has tried to "choke himself out", he's cut himself in the past, but now states "if I had a gun, it would make it so much easer but I aint got one". Subjective: Hallucinations are auditory, Having thoughts of suicide. Plan for suicide is to shoot himself with a gun, but the patient does not have access to a gun at this time. Objective: Patient is restless, Speech is normal, Affect is flat. 10:00 Interventions: Removed personal items and placed in bag. Patient placed in hospital mb8 gown. Searched person for dangerous items. Urine collected and sent for urine drug test. Safety Checks: Personal items have been removed. Door is open. Pt denies substance abuse. 02/20 07:00 Commitment: Patient will be a voluntary commitment. jl7 Vital Signs: 02/18 08:46 BP 154 / 81; Pulse 128; Resp 19; Pulse Ox 98% ; Weight 63.5 kg; Height 5 ft. 9 in. ap3 (175.26 cm); 10:29 BP 108 / 85 LA Supine (auto/reg); Pulse 74 RA; Resp 16 S; Temp 97.7(O); Pulse Ox 98% on kc6 R/A; Weight 63.5 kg (R); Height 5 ft. 9 in. (175.26 cm) (R); Pain 0/10; 12:53 BP 108 / 78 LA Sitting (auto/reg); Pulse 67; Resp 16 S; Temp 98.2; Pulse Ox 97% on R/A; mb8 Pain 0/10; 15:35 BP 116 / 84; Pulse 90; Resp 20; Pulse Ox 97% ; Pain 0/10; mb8 02/19 06:24 BP 106 / 71; Pulse 86; Resp 17; Temp 98.0(O); Pulse Ox 97% on R/A; mh5 22:34 BP 102 / 70; Pulse 86; Resp 16; Temp 98.1(O); Pulse Ox 98% on R/A; mh5 02/20 08:55 BP 108 / 73; Pulse 71; Resp 18; Pulse Ox 97% on R/A; tm3 08:55 Temp 98.1; jl7 02/18 10:29 Body Mass Index 20.67 (63.50 kg, 175.26 cm) kc6 ED Course: 02/18 08:39 Patient arrived in ED. am2 08:49 Triage completed. ap3 08:52 Arm band placed on right wrist. ap3 09:12 Jose Barbour MD is Attending Physician. yuliana 09:23 Stephen Junior, BENJY is Primary Nurse. mb8 09:32 UDS Sent. kc6 09:45 Comprehensive Metabolic Panel Sent. kc6 09:45 CBC with Diff Sent. kc6 09:45 Inserted saline lock: 20 gauge in right antecubital area, using aseptic technique. kc6 Blood collected. 09:59 No provider procedures requiring assistance completed. mb8 10:00 Patient has correct armband on for positive identification. Placed in gown. Bed in low mb8 position. Side rails up X2. 10:08 called the [facility] Crisis Line/ She will page out a screener. eb 10:20 faxed patient chart to [facility] in attempt to initiate a transfer. eb 10:28 Safety checks: Items removed: yes. Door open/sign placed on door: yes. Family/friend kc6 present: no. Sitter present: Yes. Warm blanket given. Sitter at bedside. 11:06 Safety Checks: Sitter present at this time. mb8 12:08 PRTevaluating patient at this time. mb8 12:48 IV discontinued, intact, bleeding controlled, No redness/swelling at site. Pressure mb8 dressing applied, Patient pulled out IV because "it was bothering me". Removal of. 13:49 Safety Checks: Sitter present at this time. mb8 15:01 Appears to be sleeping. mb8 15:02 Safety Checks: Sitter present at this time. mb8 16:23 Safety Checks: Sitter present at this time. mb8 17:00 Appears to be sleeping. Safety Checks: Sitter present at this time. mb8 17:56 Resting quietly. Safety Checks: Sitter present at this time. mb8 19:00 Safety Checks: Personal items have been removed. The door is open or patient has been ll3 placed in a hallway bed/chair. Sitter present at this time. 23:00 No apparent distress. Resting quietly. ll3 08/ 01:52 No apparent distress. Appears to be sleeping. ll3 06:47 SARS RAPID Sent. mh5 06:47 RAPID COVID. mh5 07:46 Primary Nurse role handed off by Stephen Junior RN eb 09:06 Akash Salas RN is Primary Nurse. jd3 11:25 faxed patient COVID results to [facility] as requested by [facility] / they could not find them in eb the chart sent yesterday. 19:00 Appears to be sleeping. ll3 21:00 Resting quietly. Appears to be sleeping. ll3 23:00 Appears to be sleeping. ll3 08 02:41 Resting quietly. Appears to be sleeping. ll3 07:13 Primary Nurse role handed off by Akash Salas RN jl7 07:13 Barbra Reyes RN is Primary Nurse. jl7 08:55 transfer approval from receiving facility. jl7 12:24 Attending Physician role handed off by Jose Barbour MD sd2 12:24 Joana Blackmon MD is Attending Physician. sd2 Administered Medications: 02/18 09:58 Drug: NS 0.9% 1000 ml Route: IV; Rate: 1 bolus; Site: right antecubital; mb8 10:28 Follow up: Response: No adverse reaction; IV Status: Completed infusion mb8 11:00 Follow up: Response: No adverse reaction; IV Status: Completed infusion mb8 16:23 Drug: Valium (diazepam) 10 mg Route: PO; mb8 16:25 Follow up: Response: No adverse reaction mb8 02/19 18:22 Drug: Valium (diazepam) 10 mg Route: PO; jd3 19:02 Follow up: Response: No adverse reaction jd3 Medication: 02/18 10:00 VIS not applicable for this client. mb8 Outcome: 10:26 ER care complete, transfer ordered by . yuliana 02/20 12:25 Discharge ordered by . md2 12:32 Discharged to home ambulatory, with family. jl7 12:32 Condition: stable 12:32 Discharge instructions given to patient, Instructed on discharge instructions, follow up and referral plans. Demonstrated understanding of instructions, follow-up care. 12:39 Patient left the ED. jl7 Signatures: Reji Lutz tm3 Jose Barbour MD MD cha Martinez, [facility] Barbra Reyes RN RN jl7 Nelida Choe Jonathon RN RN jd3 Nelida Mendieta RN RN adelina3 Prerna Montez Lynsea, RN RN 3 Joana Blackmon MD MD sdKarmen Iqbal kc6 Stephen Junior RN RN mb8
--- NOTE | 2022-02-18 10:27 | EDPHYS ---
Physician Documentation [facility] Name: Arya Yang Age: 31 yrs Sex: Male : 1990 Arrival Date: 02/18/2022 Time: 08:39 Bed 17 Private MD: ED Physician Joana Blackmon HPI: 02/18 10:14 This 31 yrs old Male presents to ER via Ambulatory with complaints of Suicidal yuliana Ideation, hearing voices. 10:14 The patient presents to the emergency department with anxiety, depression. Onset: The yuliana symptoms/episode began/occurred 2 day(s) ago. Past psychiatric history: Prior diagnosis: schizophrenia, Psychiatric medications include: none. Associated signs and symptoms: Pertinent positives; depression, substance abuse. Severity of symptoms: At their worst the symptoms were mild in the emergency department the symptoms are unchanged. The patient has not experienced similar symptoms in the past. Historical: - Allergies: 08:49 No Known Allergies; ap3 - PMHx: 08:49 Anxiety; Bipolar disorder; Schizophrenia; ap3 - Immunization history:: Client reports having NOT received the Covid vaccine. - Social history:: Smoking status: Patient reports the use of cigarette tobacco products, Patient/guardian denies using alcohol, street drugs. ROS: 10:17 Constitutional: Negative for fever, chills, and weight loss, Eyes: Negative for injury, yuliana pain, redness, and discharge, ENT: Negative for injury, pain, and discharge, Neck: Negative for injury, pain, and swelling, Cardiovascular: Negative for chest pain, palpitations, and edema, Respiratory: Negative for shortness of breath, cough, wheezing, and pleuritic chest pain, Abdomen/GI: Negative for abdominal pain, nausea, vomiting, diarrhea, and constipation, Back: Negative for injury and pain, : Negative for injury, bleeding, discharge, and swelling, MS/Extremity: Negative for injury and deformity, Skin: Negative for injury, rash, and discoloration, Neuro: Negative for headache, weakness, numbness, tingling, and seizure, Allergy/Immunology: Negative for hives, rash, and allergies, Endocrine: Negative for neck swelling, polydipsia, polyuria, polyphagia, and marked weight changes. 10:17 Psych: Positive for anxiety, auditory hallucinations, suicidal ideation. Exam: 10:17 Constitutional: This is a well developed, well nourished patient who is awake, alert, yuliana and in no acute distress. Head/Face: Normocephalic, atraumatic. Eyes: Pupils equal round and reactive to light, extra-ocular motions intact. Lids and lashes normal. Conjunctiva and sclera are non-icteric and not injected. Cornea within normal limits. Periorbital areas with no swelling, redness, or edema. ENT: Nares patent. No nasal discharge, no septal abnormalities noted. Tympanic membranes are normal and external auditory canals are clear. Oropharynx with no redness, swelling, or masses, exudates, or evidence of obstruction, uvula midline. Mucous membranes moist. Neck: Trachea midline, no thyromegaly or masses palpated, and no cervical lymphadenopathy. Supple, full range of motion without nuchal rigidity, or vertebral point tenderness. No Meningismus. Chest/axilla: Normal chest wall appearance and motion. Nontender with no deformity. No lesions are appreciated. Cardiovascular: Regular rate and rhythm with a normal S1 and S2. No gallops, murmurs, or rubs. Normal PMI, no JVD. No pulse deficits. Respiratory: Lungs have equal breath sounds bilaterally, clear to auscultation and percussion. No rales, rhonchi or wheezes noted. No increased work of breathing, no retractions or nasal flaring. Abdomen/GI: Soft, non-tender, with normal bowel sounds. No distension or tympany. No guarding or rebound. No evidence of tenderness throughout. Back: No spinal tenderness. No costovertebral tenderness. Full range of motion. Male : Normal genitalia with no discharge or lesions. Skin: Warm, dry with normal turgor. Normal color with no rashes, no lesions, and no evidence of cellulitis. MS/ Extremity: Pulses equal, no cyanosis. Neurovascular intact. Full, normal range of motion. Neuro: Awake and alert, GCS 15, oriented to person, place, time, and situation. Cranial nerves II-XII grossly intact. Motor strength 5/5 in all extremities. Sensory grossly intact. Cerebellar exam normal. Normal gait. 10:17 Psych: Affect is calm, Oriented to Patient has no thoughts/intents to harm self or others. Judgement / Insight is normal. Memory is normal. Delusions/hallucinations are present and described as HEARING VOICES. Vital Signs: 08:46 BP 154 / 81; Pulse 128; Resp 19; Pulse Ox 98% ; Weight 63.5 kg; Height 5 ft. 9 in. ap3 (175.26 cm); 10:29 BP 108 / 85 LA Supine (auto/reg); Pulse 74 RA; Resp 16 S; Temp 97.7(O); Pulse Ox 98% on kc6 R/A; Weight 63.5 kg (R); Height 5 ft. 9 in. (175.26 cm) (R); Pain 0/10; 12:53 BP 108 / 78 LA Sitting (auto/reg); Pulse 67; Resp 16 S; Temp 98.2; Pulse Ox 97% on R/A; mb8 Pain 0/10; 15:35 BP 116 / 84; Pulse 90; Resp 20; Pulse Ox 97% ; Pain 0/10; mb8 08 06:24 BP 106 / 71; Pulse 86; Resp 17; Temp 98.0(O); Pulse Ox 97% on R/A; mh5 22:34 BP 102 / 70; Pulse 86; Resp 16; Temp 98.1(O); Pulse Ox 98% on R/A; mh5 02/20 08:55 BP 108 / 73; Pulse 71; Resp 18; Pulse Ox 97% on R/A; tm3 08:55 Temp 98.1; jl7 02/18 10:29 Body Mass Index 20.67 (63.50 kg, 175.26 cm) kc6 MDM: 02/18 09:12 Patient medically screened. yuliana 10:23 Differential diagnosis: drug withdrawal. acute psychotic break, depression, psychosis yuliana secondary to non-compliance. Data reviewed: vital signs, nurses notes, lab test result(s), EKG. Data interpreted: or first assist registered nurse: rate is 128 beats/min, rhythm is regular, Pulse oximetry: on room air is 98 %. Test interpretation: by ED physician or midlevel provider: ECG. Counseling: I had a detailed discussion with the patient and/or guardian regarding: the historical points, exam findings, and any diagnostic results supporting the discharge/admit diagnosis, lab results, radiology results. 02/19 03:06 ED course: Patient has been resting comfortably and not required any further kdr intervention during her shift. 07:23 Transition of care: Care assumed from Burton Pedroza MD. ED course: Bed available on monday for patient. Medically cleared. Pending placement.. 02/20 01:57 ED course: Patient continues to rest comfortably in the ED and does not require any kdr further intervention at this time.. 11:55 ED course: I was advised by RN that patient is now wanting to leave. He is denying any sd2 further suicidal ideation and does not appear to be a danger to himself or others. He was informed that he was pending placement and should have a bed available tomorrow but is choosing to leave. He understands that he may change his mind and return at any time for further evaluation. He verbalizes understanding of discharge plan and strict return precautions.. 02/18 09:13 Order name: CBC with Diff; Complete Time: 10:05 [facility] 02/18 09:13 Order name: Comprehensive Metabolic Panel; Complete Time: 10:13 [facility] 02/18 09:13 Order name: UDS; Complete Time: 10:05 [facility] 02/18 09:31 Order name: Urine Dipstick-Ancillary; Complete Time: 10:05 [facility] 02/19 06:34 Order name: SARS RAPID; Complete Time: 17:35 ll3 02/18 17:53 Order name: Diet Finger Food: dinner tray; Complete Time: 17:54 eb 02/19 05:25 Order name: Diet Finger Food; Complete Time: 05:26 mh5 02/19 09:40 Order name: Diet Finger Food; Complete Time: 09:41 jd3 02/19 16:20 Order name: Diet Finger Food; Complete Time: 16:21 em6 02/20 05:12 Order name: Diet Finger Food; Complete Time: 05:13 5 02/20 10:51 Order name: Diet Finger Food; Complete Time: 10:51 tm3 02/18 09:13 Order name: Urine Dipstick-Ancillary (obtain specimen); Complete Time: 09:31 [facility] Administered Medications: 02/18 09:58 Drug: NS 0.9% 1000 ml Route: IV; Rate: 1 bolus; Site: right antecubital; mb8 10:28 Follow up: Response: No adverse reaction; IV Status: Completed infusion mb8 11:00 Follow up: Response: No adverse reaction; IV Status: Completed infusion mb8 16:23 Drug: Valium (diazepam) 10 mg Route: PO; mb8 16:25 Follow up: Response: No adverse reaction mb8 02/19 18:22 Drug: Valium (diazepam) 10 mg Route: PO; jd3 19:02 Follow up: Response: No adverse reaction jd3 Disposition Summary: 02/20/22 12:25 Discharge Ordered Location: Home sd2 Problem: an acute exacerbation(02/20/22 12:25) sd2 Symptoms: are resolved(02/20/22 12:25) sd2 Condition: Stable(02/20/22 12:25) sd2 Diagnosis - Suicidal ideations(02/20/22 12:25) sd2 Followup: sd2 - With: Private Physician - When: 2 - 3 days - Reason: Recheck today's complaints, Continuance of care, Re-evaluation by your physician Followup: sd2 - With: Emergency Department - When: As needed - Reason: Discharge Instructions: - Discharge Summary Sheet sd2 - Suicidal Feelings: How to Help Yourself sd2 - Helping Someone Who is Suicidal sd2 Forms: - Medication Reconciliation Form sd2 - Thank You Letter sd2 - Antibiotic Education sd2 - Prescription Opioid Use sd2 Signatures: Dispatcher [employer] EDJose Stahl MD MD cha Rittger, Kevin, MD MD kdr Davies, Jonathon, RN RN jd3 Nelida Mendieta RN RN [email or web address] Joana Blackmon MD MD sd2 Stephen Junior RN RN mb8 Corrections: (The following items were deleted from the chart) 02/20 12:02/18 10:26 TO [facility] yuliana sd2 02/20 12:02/18 10:26 Psych Facility yuliana sd2 02/20 12:02/18 10:26 Higher level of care yuliana sd2 02/20 12:25 02/18 10:26 Stable yuliana sd2 02/20 12:25 02/18 10:26 new yuliana sd2 02/20 12:25 02/18 10:26 are unchanged yuliana sd2 02/20 12:25 02/18 10:26 Cocaine abuse yuliana sd2 02/20 12:25 02/18 10:26 Adverse effect of amphetamines yuliana sd2 02/20 12:25 02/18 10:26 Suicidal ideations yuliana sd2 02/20 12:25 19 10:26 Abuse of other non-psychoactive substances - POLYSUBSTANCE ABUSE [facility] 02/20 1202/18 10:26 Paranoid schizophrenia [place] [id number]
[2022-02-18] MEDS ORDERED: DIAZEPAM 5 MG TABLET ONE (16:21)
[2022-02-19 07:32] LABS: SARS-CoV-2 Antigen Rapid Res Negative (Negative)
[2022-02-19] MEDS ORDERED: DIAZEPAM 5 MG TABLET ONE (18:27)
[2022-02-20 13:30] VITALS: TEMP 98.1
[2022-02-20 13:38] VITALS: BP 108/73; O2SAT 97
== END 2022-02-20 12:39 | disposition home or self-care (01) ==
LOC: ER 08:39
DX: R45.851 Suicidal ideations (principal); F20.9 Schizophrenia, unspecified; Z20.822 Contact with and (suspected) exposure to COVID-19; Z72.0 Tobacco use
CPT/HCPCS: 36415; 80053; 80307; 81003; 85025; 87811; 99284; J7030